=== PATIENT | male | born 1985 | race Caucasian/White ===

== ENCOUNTER → 2017-05-31 | Outpatient (CLI) | payer OTHER | END | disposition home or self-care (01) | LOC: GMA 17:25 | PROVIDERS: ATTEND Physician Assistant | DX: I10 Essential (primary) hypertension (principal); R53.81 Other malaise; R53.83 Other fatigue ==

== ENCOUNTER → 2017-06-22 | Outpatient (CLI) | payer OTHER | END | disposition home or self-care (01) | LOC: GMA 11:28 | PROVIDERS: ATTEND Nurse Practitioner Family | DX: E34.9 Endocrine disorder, unspecified (principal); E29.8 Other testicular dysfunction; Z12.5 Encounter for screening for malignant neoplasm of prostate; I10 Essential (primary) hypertension; E56.9 Vitamin deficiency, unspecified ==

== ENCOUNTER → 2017-07-05 | Outpatient (CLI) | payer OTHER | END | disposition home or self-care (01) | LOC: GMA 16:51 | PROVIDERS: ATTEND Nurse Practitioner Family | DX: E22.1 Hyperprolactinemia (principal) ==

== ENCOUNTER → 2020-06-07 | Outpatient (CLI) | payer OTHER | LOC: GMAM 16:15 | PROVIDERS: ATTEND Family Medicine | DX: E53.8 Deficiency of other specified B group vitamins (principal); E29.1 Testicular hypofunction; E55.9 Vitamin D deficiency, unspecified ==

== ENCOUNTER → 2020-06-25 | Outpatient (CLI) | payer OTHER ==
--- NOTE | 2020-06-28 12:25 | US ---
EXAM DESCRIPTION: Liver: ULTRASOUND. CLINICAL HISTORY: ABNORMAL LIVER FUNCTION STUDIES COMPARISON: None. TECHNIQUE: Transabdominal scannin-dimensional and Doppler modes. FINDINGS: Gallbladder: normal size, shape, echogenicity; no intraluminal stones or sludge. No fluid around the gallbladder. No wall thickening. 2.9 mm. Non-tender with transducer pressure. Common bile duct: caliber 5.5 mm within normal limits. Liver: normal echogenicity; contour liver capsule smooth where seen. 2.2 x 2.2 cm circumscribed, hypoechoic mass versus anechoic cyst. No fluid around the liver. Intrahepatic biliary ducts normal caliber. Doppler hepatopedal flow portal vein. 10.4 mm. Long axis right lobe 15.2 cm. Pancreas: normal size and echogenicity. Duct not seen. Right kidney: Long axis measures 12.2 cm. Volume 220.1 ml. Cortical echogenicity increased but less than the liver.. Cortical thickness normal. No echogenic stones; no hydronephrosis. Aorta proximal: 1.8 cm normal caliber. IMPRESSION: 1. 2.2 cm circumscribed, hypoechoic solid mass, nonvascular, versus cyst. Consider MRI scan of the liver with mass protocol. Otherwise unremarkable. Pancreas is negative. 2. Gallbladder and common bile duct are negative. Normal caliber proximal abdominal aorta. 3. Right kidney is negative. Electronically signed by: Jose Bermeo MD 06/28/2020 12:24 PM [facility]
== END ==
LOC: US 09:49
PROVIDERS: ATTEND Family Medicine
DX: R94.5 Abnormal results of liver function studies (principal); K76.9 Liver disease, unspecified

== ENCOUNTER → 2020-06-25 | Outpatient (CLI) | payer OTHER | LOC: GMAM 10:33 | PROVIDERS: ATTEND Family Medicine | DX: R94.5 Abnormal results of liver function studies (principal) ==